=== PATIENT | male | born 1975 | race Caucasian/White ===

== ENCOUNTER 2022-03-26 14:53 | Emergency (ER) | payer OTHER ==
[2022-03-26 16:29] LABS: HEMOGLOBIN 13.7 gm/dl (12.3-15.3); RED BLOOD COUNT 4.23 M/UL (4.00-5.10); WHITE BLOOD COUNT 6.5 K/UL (4.5-11.0)
[2022-03-26 16:48] LABS: BUN/CREATININE RATIO 11 (0-10)
[2022-03-26] MEDS ORDERED: PHENERGAN 25 MG25 M1 PO (21:58)
== END 2022-03-26 22:13 | disposition home or self-care (01) ==
LOC: ER1 14:53 → EDSEX 14:53 → ER1 22:13
PROVIDERS: Physician Assistant
DX: R11.2 Nausea with vomiting, unspecified (principal); R19.7 Diarrhea, unspecified; E11.9 Type 2 diabetes mellitus without complications; I10 Essential (primary) hypertension; J45.909 Unspecified asthma, uncomplicated; Z88.1 Allergy status to other antibiotic agents
CPT/HCPCS: 71045; 80053; 83690; 85025; 96374; 99284; J2405